=== PATIENT | male | born 1995 | race Caucasian/White ===

== ENCOUNTER 2023-12-10 11:37 | Emergency (ER) | payer OTHER, SELFPAY ==
[2023-12-10 11:44] VITALS: BP 129/74; PULSE 90; TEMP 36.8; O2SAT 97; BMI 22.4
--- NOTE | 2023-12-10 11:57 | ED_ITS ---
HPI - URI/Sore Throat General Chief Complaint: Upper Respiratory Infection Stated Complaint: URTI COMPLAINTS/SORE THROAT Time Seen by Provider: 12/10/23 11:45 Source: patient History of Present Illness HPI Narrative: 28-year-old male presents for cough and sore throat which she has had for a few days. No known ill contacts. He has been coughing up some light green phlegm. He states he is not concerned at all about COVID. No vomiting or diarrhea or known fever. No hemoptysis. He vapes and he had asthma as a child. Related Data Home Medications ?Medication ?Instructions ?Recorded ?Confirmed pregabalin 200 mg capsule (Lyrica) 200 mg PO TID 12/10/23 12/10/23 Previous Rx's ?Medication ?Instructions ?Recorded azithromycin 250 mg tablet See Rx Instructions PO .COMPLEX #6 12/10/23 (Zithromax Z-Clifford) tabs benzonatate 100 mg capsule 100 mg PO TID PRN cough #20 caps 12/10/23 Allergies Allergy/AdvReac Type Severity Reaction Status Date / Time No Known Drug Allergies Allergy Verified 12/10/23 11:43 Review of Systems ROS Narrative A ten point review of systems is negative except as noted above. PFSH PFSH Social History Little interest or pleasure in doing things: not at all Feeling down, depressed, or hopeless: not at all Exam Narrative Exam Narrative: Nurses note and vital signs reviewed and patient is not hypoxic. General: The patient appears well and in no apparent distress. Patient is resting comfortably on cart. Skin: Warm, dry, no pallor noted. There is no rash noted. Head: Normocephalic, atraumatic Eye: Normal conjunctiva, no drainage Ears, Nose, Mouth, and Throat: oral mucosa is moist. Nares patent. No pharyngeal exudate or erythema. Uvula midline. He is handling his oral secretions well. Cardiovascular: Regular Rate and Rhythm Respiratory: Patient is in no distress, no accessory muscle use, lungs are clear to auscultation, no wheezing, rales or rhonchi Back: non-tender GI: Soft and nontender Musculoskeletal: The patient has no evidence of calf tenderness, no pitting edema, symmetrical pulses noted bilaterally Neurological: A&O, normal speech Psychiatric: Cooperative Constitutional Vital Signs, click to edit/add: Last Vital Signs Temp 98.2 F 12/10/23 11:44 Pulse 90 12/10/23 11:44 Resp 18 12/10/23 11:44 BP 129/74 12/10/23 11:44 Pulse Ox 97 12/10/23 11:44 O2 Del Method Room Air 12/10/23 11:44 Course Vital Signs Vital signs: Vital Signs Temperature 98.2 F 12/10/23 11:44 Pulse Rate 90 12/10/23 11:44 Respiratory Rate 18 12/10/23 11:44 Blood Pressure 129/74 12/10/23 11:44 Pulse Oximetry 97 12/10/23 11:44 Oxygen Delivery Method Room Air 12/10/23 11:44 Temperature 98.2 F 12/10/23 11:44 Pulse Rate 90 12/10/23 11:44 Respiratory Rate 18 12/10/23 11:44 Blood Pressure 129/74 12/10/23 11:44 Pulse Oximetry 97 12/10/23 11:44 Oxygen Delivery Method Room Air 12/10/23 11:44 MDM - URI/Sore Throat MDM Narrative Medical decision making narrative: Strep test is negative. He has diabetes and is prescribed Zithromax and Tessalon. Treatment diagnosis and follow-up were discussed with the patient. Differential Diagnosis Differential diagnosis: Likely upper respiratory infection, viral infection and other (Pneumonia) Lab Data Attestation: I reviewed the patient's lab results. Labs: Lab Results 12/10/23 Range/Units 11:51 Streptococcus Screen Negative Discharge Plan Discharge Chief Complaint: Upper Respiratory Infection Clinical Impression: Upper respiratory infection Patient Disposition: Home, Self-Care Time of Disposition Decision: 12:19 Condition: Good Mode of Transportation: Private Vehicle Prescriptions / Home Meds: New azithromycin [Zithromax Z-Clifford] 250 mg tablet See Rx Instructions .ROUTE .COMPLEX Qty: 6 0RF Rx Instructions: For 250 mg dose pack: take 500 mg today (day 1), then 250 mg for 4 days (days 2-5) benzonatate 100 mg capsule 100 mg PO TID PRN (Reason: cough) Qty: 20 0RF No Action pregabalin [Lyrica] 200 mg capsule 200 mg PO TID Print Language: Italian Instructions: Upper Respiratory Infection (ED) Referrals: Physician,Non-Staff, MD [Primary Care Provider] - 1 week
[2023-12-10 12:06] LABS: Internal Control Within Normal Limits; Strep A Antigen Screen Negative
[2023-12-10 12:27] VITALS: BP 126/88; PULSE 86; O2SAT 98
== END 2023-12-10 12:28 | disposition home or self-care (01) ==
PROVIDERS: Emergency Provider Emergency Medicine
DX: J06.9 Acute upper respiratory infection, unspecified (principal)
CPT/HCPCS: 87070; 87880; 99283

== ENCOUNTER 2023-12-29 13:26 | Emergency (ER) | payer OTHER, SELFPAY ==
[2023-12-29 13:30] VITALS: BP 131/93; PULSE 80; TEMP 36.7; O2SAT 100; BMI 22.4
--- NOTE | 2023-12-29 13:35 | XR_ITS ---
The [address] [address] Patient Name: CELESTINE ESPINO MRN: [id number] date: 1995 Sex: M Assigned Patient Location: ED.MAIN Current Patient Location: ED.MAIN Accession/Order Number: [id number] Exam Date: 12/29/2023 13:40 Report Date: 12/29/2023 15:28 At the request of: MESHA MCQUEEN Procedure: XR hand RT min 3V XR hand RT min 3V 12/29/2023 1:40 PM EDT CLINICAL INDICATION: Injury COMPARISON: None. TECHNIQUE: 3 views of the right hand. FINDINGS: The bones are intact. The alignment is anatomic. The joints are maintained. The soft tissues are grossly unremarkable. XR/XR hand RT min 3V IMPRESSION: No acute osseous abnormality. Electronically authenticated by: SD SANTA Date: 12/29/2023 15:28
--- NOTE | 2023-12-29 13:45 | ED.GENADUL1 ---
HPI HPI - General Adult General Chief complaint: Extremity Injury, Upper Stated complaint: rt hand injury Time Seen by Provider: 12/29/23 13:28 Source: patient Mode of arrival: walk-in History of Present Illness HPI narrative: 28-year-old male to the emergency department with chief complaint of right hand pain. Patient reports that last night he punched a wall. He now has pain at the second MCP. No other injuries. Patient reports that he had a similar injury on his left hand and it did not heal right. Related Data Home Medications ?Medication ?Instructions ?Recorded ?Confirmed insulin aspart U-100 100 unit/mL 15 unit subcut TID 12/10/23 12/10/23 subcutaneous solution (Novolog U-100 Insulin aspart) insulin glargine 100 unit/mL (3 15 unit subcut DAILY 12/10/23 12/10/23 mL) subcutaneous pen (Basaglar KwikPen U-100 Insulin) pregabalin 200 mg capsule (Lyrica) 200 mg PO TID 12/10/23 12/10/23 Previous Rx's ?Medication ?Instructions ?Recorded azithromycin 250 mg tablet See Rx Instructions PO .COMPLEX #6 12/10/23 (Zithromax Z-Clifford) tabs benzonatate 100 mg capsule 100 mg PO TID PRN cough #20 caps 12/10/23 Allergies Allergy/AdvReac Type Severity Reaction Status Date / Time No Known Drug Allergies Allergy Verified 12/10/23 11:43 Opioid HPI Opioid Management Most Recent Opioid Data: Last Pain Scale 7 12/29/23 13:41 12/29/23 Review of Systems ROS Status of ROS 10 or more systems reviewed and unremarkable except as noted in history and below PFSH PFSH Social History Little interest or pleasure in doing things: not at all Feeling down, depressed, or hopeless: not at all Exam Narrative Exam Narrative: VITALS: I have reviewed the triage vital signs. GENERAL: Well developed, well appearing adult in no acute distress. NEURO: Alert and oriented. Moves all extremities. Face is symmetric and expressive. EYES: PERRL. No scleral icterus or conjunctival injection. No discharge. HENT: Normocephalic, atraumatic. Hearing is grossly intact. Nares grossly patent and without discharge. Mucous membranes moist. NECK: No JVD. Patient moves neck without restriction. Right hand: No tenderness or pain with range of motion about the wrist, elbow, shoulder. There is tenderness at the second MCP as well as some bruising and swelling. Radial pulse intact. Sensation is intact over the hand. Central Office Maintainer strength is intact. No abnormal digit alignment. No obvious deformity SKIN: Warm and dry. Normal turgor. No rash or lesions appreciated. PSYCH: Mood, affect, and interaction is appropriate to the setting. Constitutional Vital Signs, click to edit/add: Last Vital Signs Temp 98.1 F 12/29/23 13:30 Pulse 80 12/29/23 13:30 Resp 16 12/29/23 13:30 BP 131/93 H 12/29/23 13:30 Pulse Ox 100 12/29/23 13:30 O2 Del Method Room Air 12/29/23 13:30 Course Vital Signs Vital signs: Vital Signs Temperature 98.1 F 12/29/23 13:30 Pulse Rate 80 12/29/23 13:30 Respiratory Rate 16 12/29/23 13:30 Blood Pressure 131/93 H 12/29/23 13:30 Pulse Oximetry 100 12/29/23 13:30 Oxygen Delivery Method Room Air 12/29/23 13:30 Temperature 98.1 F 12/29/23 13:30 Pulse Rate 80 12/29/23 13:30 Respiratory Rate 16 12/29/23 13:30 Blood Pressure 131/93 H 12/29/23 13:30 Pulse Oximetry 100 12/29/23 13:30 Oxygen Delivery Method Room Air 12/29/23 13:30 Medical Decision Making MDM Narrative Medical decision making narrative: 28-year-old male the emergency department chief complaint of injury to his right hand. Vital stable, the patient is afebrile. The right hand is neurovascularly intact. X-rays ordered. X-rays without evidence of fracture. Recommended ice, rest, NSAIDs, not punching things. Return precautions were discussed. All questions were answered. The patient was discharged home. Medical Records Medical records reviewed: Yes I reviewed the patient's medical records Imaging Data X-ray hand: Radiologist's impression: ITS Impressions Hand X-Ray 12/29/23 13:35 IMPRESSION: No acute osseous abnormality. Electronically authenticated by: SD SANTA Date: 12/29/2023 15:28 Discharge Plan Discharge Chief Complaint: Extremity Injury, Upper Clinical Impression: Contusion of hand Patient Disposition: Home, Self-Care Time of Disposition Decision: 15:34 Condition: Good Mode of Transportation: Private Vehicle Prescriptions / Home Meds: No Action pregabalin [Lyrica] 200 mg capsule 200 mg PO TID azithromycin [Zithromax Z-Clifford] 250 mg tablet See Rx Instructions .ROUTE .COMPLEX Qty: 6 0RF Rx Instructions: For 250 mg dose pack: take 500 mg today (day 1), then 250 mg for 4 days (days 2-5) benzonatate 100 mg capsule 100 mg PO TID PRN (Reason: cough) Qty: 20 0RF insulin aspart U-100 [Novolog U-100 Insulin aspart] 100 unit/mL solution 15 unit subcut TID insulin glargine [Basaglar KwikPen U-100 Insulin] 100 unit/mL (3 mL) insulin pen 15 unit subcut DAILY Print Language: Syriac Instructions: Contusion in Adults (ED) Additional Instructions: Call the office of your primary care doctor to arrange for follow-up within the above-stated timeframe. Your ED visit was focused on your acute issue and does not replace primary care. You should review your labs, imaging, and diagnoses from this ED visit with your primary care physician. There may be non-emergent/ incidental findings that need further evaluation. You should review your vital signs including blood pressure with your PCP. If you were prescribed medications you should discuss possible side-effects and drug interactions with your pharmacist. Call 911 or go to the nearest Emergency Department if you develop any new or worsening symptoms. Referrals: Physician,Non-Staff, MD [Primary Care Provider] - 1 week Discharge Date/Time: 12/29/23 15:39
== END 2023-12-29 15:39 | disposition home or self-care (01) ==
PROVIDERS: Emergency Provider Student in an Organized Health Care Education/Training Program
DX: S60.221A Contusion of right hand, initial encounter (principal); W22.01XA Walked into wall, initial encounter
CPT/HCPCS: 73130; 99283

== ENCOUNTER 2024-01-25 11:43 | Emergency (ER) | payer OTHER, SELFPAY ==
[2024-01-25 11:46] VITALS: BP 145/82; PULSE 82; TEMP 36.6; O2SAT 100; BMI 21.7
[2024-01-25 11:57] LABS: Glucometer 34 mg/dL (74-106)
[2024-01-25] MEDS: DEXTROSE 50 %-WATER 25 GM/50 ML SYRINGE IV (12:07)
[2024-01-25 12:16] LABS: Basophils Percent Auto 0.5 % (0.2-2.0); Eosinophils Absolute Auto 0.1 10^3/uL (0.0-0.7); Eosinophils Percent Auto 1.5 % (0.9-7.0); Hematocrit 43.5 % (42.0-54.0); Hemoglobin 14.9 g/dL (14.0-18.0); Immature Granulocytes Abs Auto 0.01 10^3/uL (0.00-0.03); Immature Granulocytes Pct Auto 0.1 % (0.0-0.5); Lymphocytes Absolute Auto 3.2 10^3/uL (1.2-3.8); Mean Corpuscular HGB Conc 34.3 g/dL (29.9-35.2); Mean Corpuscular Hemoglobin 30.7 pg (25.9-34.0); Mean Corpuscular Volume 89.7 fL (80.0-94.0); Mean Platelet Volume 10.9 fL (9.5-13.5); Monocytes Absolute Auto 0.5 10^3/uL (0.3-0.8); Monocytes Percent Auto 7.2 % (1.7-12.0); Neutrophils Absolute Auto 3.7 10^3/uL (1.4-6.5); Neutrophils Percent Auto 48.7 % (43.0-75.0); Platelet Count 294 10^3/uL (150-450); Red Blood Count 4.85 10^6/uL (4.70-6.10); Red Cell Distribution Width 12.5 % (11.0-15.0); White Blood Count 7.6 10^3/uL (4.0-11.0)
[2024-01-25 12:28] LABS: Alanine Aminotransferase 106 U/L (16-63); Albumin Globulin Ratio 1.2; Albumin Level 4.1 g/dL (3.4-5.0); Alkaline Phosphatase 74 U/L (46-116); Anion Gap 13.7; Aspartate Amino Transferase 44 U/L (15-37); BUN Creatinine Ratio 15.5; Bilirubin Total 0.3 mg/dL (0.2-1.0); Carbon Dioxide 28.6 mmol/L (21.0-32.0); Chloride 107 mmol/L (98-107); Estimated GFR (African America >60 (>=60 mL/min/1.73m^2); Estimated GFR (Non-African Ame >60 (>=60 mL/min/1.73m^2); Globulin 3.4 g/dL; Potassium 3.3 mmol/L (3.5-5.1); Sodium 146 mmol/L (136-145); Total Protein 7.5 g/dL (6.4-8.2)
[2024-01-25 12:29] LABS: Glucometer 190 mg/dL (74-106)
[2024-01-25 12:30] LABS: Glucose 34 mg/dL (74-106)
[2024-01-25 13:32] LABS: Glucometer 180 mg/dL (74-106)
--- NOTE | 2024-01-25 15:09 | ED_ITS ---
HPI - Weakness General Chief complaint: Weakness Stated complaint: LOW BLOOD SUGAR/ GENERAL WEAKNESS Time Seen by Provider: 01/25/24 11:48 Source: patient Mode of arrival: walk-in History of Present Illness HPI Narrative: The patient is coming to the ER after he passed out on his way here apparently he has been dealing with low blood sugar for a while for the last few weeks, patient does not measure his blood sugar daily he is type I diabetic He also does not have a primary care doctor and the last time he seen any care was 1 year ago Upon arrival the patient was noted to be dizzy but he did not have any nausea vomiting or any tremors There was no changes in his insulin recently and he did take his insulin this morning without measuring it Related Data Home Medications ?Medication ?Instructions ?Recorded ?Confirmed pregabalin 200 mg capsule (Lyrica) 200 mg PO TID 12/10/23 12/10/23 Previous Rx's ?Medication ?Instructions ?Recorded blood sugar diagnostic (Accu-Chek #100 ea 01/25/24 Guide test strips) blood-glucose meter (Accu-Chek #1 ea 01/25/24 Guide Me Glucose Meter) Allergies Allergy/AdvReac Type Severity Reaction Status Date / Time No Known Drug Allergies Allergy Verified 12/10/23 11:43 Review of Systems ROS Status of ROS 10 or more systems reviewed and unremark able except as noted in history and below PFSH PFSH Social History Little interest or pleasure in doing things: not at all Feeling down, depressed, or hopeless: not at all Exam Narrative Exam Narrative: Nurses notes and vital signs reviewed and patient is not hypoxic. General: Well-appearing and in no apparent distress. Skin: Warm, dry, no pallor noted. No rash. Head: Normocephalic, atraumatic. Neck: Supple, non-tender. Eye: Pupils are equal, round and EOMI. No scleral icterus. Ears, Nose, Mouth, and Throat: TM are clear, no nasal mucosal hypertrophy. Oral mucosa is moist, no posterior oropharynx erythema, uvula is mid-line Cardiovascular: Regular Rate and Rhythm without murmur, gallop or rub. Respiratory: No accessory muscle use or respiratory distress. Lungs are clear to auscultation, no wheezing, rales or rhonchi Chest Wall: no tenderness Back: No midline thoracic or lumbar vertebral tenderness. No CVA tenderness Musculoskeletal: normal ROM, no calf or popliteal tenderness, no lower extremity edema/swelling GI: Abdomen is soft, non-distended. Normal bowel sounds. No masses appreciated. No tenderness to palpation. No rebound, guarding, or rigidity noted. Neurological: A&O x4. No cranial nerve dysfunction observed. No truncal ataxia. Moves all extremities. Sensation intact. Psychiatric: Cooperative and interactive. Normal mood and affect. Constitutional Vital Signs, click to edit/add: Last Vital Signs Temp 97.8 F 01/25/24 11:46 Pulse 82 01/25/24 11:46 Resp 16 01/25/24 11:46 BP 145/82 H 01/25/24 11:46 Pulse Ox 100 01/25/24 11:46 O2 Del Method Room Air 01/25/24 11:46 Course Vital Signs Vital signs: Vital Signs Temperature 97.8 F 01/25/24 11:46 Pulse Rate 82 01/25/24 11:46 Respiratory Rate 16 01/25/24 11:46 Blood Pressure 145/82 H 01/25/24 11:46 Pulse Oximetry 100 01/25/24 11:46 Oxygen Delivery Method Room Air 01/25/24 11:46 Temperature 97.8 F 01/25/24 11:46 Pulse Rate 82 01/25/24 11:46 Respiratory Rate 16 01/25/24 11:46 Blood Pressure 145/82 H 01/25/24 11:46 Pulse Oximetry 100 01/25/24 11:46 Oxygen Delivery Method Room Air 01/25/24 11:46 MDM - Weakness MDM Narrative Medical decision making narrative: The patient blood sugar upon arrival was 34 it was noted that he takes 16 units of Lantus daily and he 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 sugar containing fluids He was kept in the ER at least for an hour during which his blood sugar did not drop again and I did offer him after that to be admitted for 24 hours observation because his insulin works for 24 hours but the patient mentioned that he is feeling better and his blood sugar did not drop again he just want to go home I explained to him that right now with his girlfriend at the bedside she have to make sure that she will keep an eye on his blood sugar his blood sugar need to be measured at least 4 times a day and especially before going to sleep and when waking up and with every meal before taking his insulin the patient also was provided with a glucometer and testing strips And he is to follow-up with his primary care doctor that he was referred to a new primary care in the area The patient also take lower his Lantus to 10 units daily and that to be started tomorrow not today and to also lowered his lispro to 12 units and that to be given these changes tomorrow but today he is not going to control his blood sugar with insulin and he will measure the blood sugar at least 4 times today as well The patient is to follow up with primary care physician in next 2-3 days or to return to the emergency department should any of the signs or symptoms worsen or new symptoms develop. The patient agrees with the following Diagnosis and Treatment plan and the patient will be discharged home., Lab Data Labs: Lab Results 01/25/24 01/25/24 01/25/24 Range/Units 11:48 11:53 12:27 WBC 7.6 (4.0-11.0) 10^3/uL RBC 4.85 (4.70-6.10) 10^6/uL Hgb 14.9 (14.0-18.0) g/dL Hct 43.5 (42.0-54.0) % MCV 89.7 (80.0-94.0) fL MCH 30.7 (25.9-34.0) pg MCHC 34.3 (29.9-35.2) g/dL RDW 12.5 (11.0-15.0) % Plt Count 294 (150-450) 10^3/uL MPV 10.9 (9.5-13.5) fL Neut % (Auto) 48.7 (43.0-75.0) % Lymph % (Auto) 42.0 (20.5-60.0) % Canyon % (Auto) 7.2 (1.7-12.0) % Eos % (Auto) 1.5 (0.9-7.0) % Baso % (Auto) 0.5 (0.2-2.0) % Neut # (Auto) 3.7 (1.4-6.5) 10^3/uL Lymph # (Auto) 3.2 (1.2-3.8) 10^3/uL Canyon # (Auto) 0.5 (0.3-0.8) 10^3/uL Eos # (Auto) 0.1 (0.0-0.7) 10^3/uL Baso # (Auto) 0.0 (0.0-0.1) 10^3/uL Abs Immat Gran (auto) 0.01 (0.00-0.03) 10^3/uL Imm/Tot Granulo (auto) 0.1 (0.0-0.5) % Sodium 146 H (136-145) mmol/L Potassium 3.3 L (3.5-5.1) mmol/L Chloride 107 (98-107) mmol/L Carbon Dioxide 28.6 (21.0-32.0) mmol/L Anion Gap 13.7 BUN 16.0 (7.0-18.0) mg/dL Creatinine 1.03 (0.70-1.30) mg/dL Est GFR ( Amer) >60 (>=60 mL/min/1.73m^2) Est GFR (Non-Af Amer) >60 (>=60 mL/min/1.73m^2) BUN/Creatinine Ratio 15.5 Glucose 34 L* (74-106) mg/dL Calcium 9.0 (8.5-10.1) mg/dL Total Bilirubin 0.3 (0.2-1.0) mg/dL AST 44 H (15-37) U/L ALT 106 H (16-63) U/L Alkaline Phosphatase 74 (46-116) U/L Total Protein 7.5 (6.4-8.2) g/dL Albumin 4.1 (3.4-5.0) g/dL Globulin 3.4 g/dL Albumin/Globulin Ratio 1.2 POC Glucose 34 L* 190 H (74-106) mg/dL 01/25/24 Range/Units 13:31 WBC (4.0-11.0) 10^3/uL RBC (4.70-6.10) 10^6/uL Hgb (14.0-18.0) g/dL Hct (42.0-54.0) % MCV (80.0-94.0) fL MCH (25.9-34.0) pg MCHC (29.9-35.2) g/dL RDW (11.0-15.0) % Plt Count (150-450) 10^3/uL MPV (9.5-13.5) fL Neut % (Auto) (43.0-75.0) % Lymph % (Auto) (20.5-60.0) % Canyon % (Auto) (1.7-12.0) % Eos % (Auto) (0.9-7.0) % Baso % (Auto) (0.2-2.0) % Neut # (Auto) (1.4-6.5) 10^3/uL Lymph # (Auto) (1.2-3.8) 10^3/uL Canyon # (Auto) (0.3-0.8) 10^3/uL Eos # (Auto) (0.0-0.7) 10^3/uL Baso # (Auto) (0.0-0.1) 10^3/uL Abs Immat Gran (auto) (0.00-0.03) 10^3/uL Imm/Tot Granulo (auto) (0.0-0.5) % Sodium (136-145) mmol/L Potassium (3.5-5.1) mmol/L Chloride (98-107) mmol/L Carbon Dioxide (21.0-32.0) mmol/L Anion Gap BUN (7.0-18.0) mg/dL Creatinine (0.70-1.30) mg/dL Est GFR ( Amer) (>=60 mL/min/1.73m^2) Est GFR (Non-Af Amer) (>=60 mL/min/1.73m^2) BUN/Creatinine Ratio Glucose (74-106) mg/dL Calcium (8.5-10.1) mg/dL Total Bilirubin (0.2-1.0) mg/dL AST (15-37) U/L ALT (16-63) U/L Alkaline Phosphatase (46-116) U/L Total Protein (6.4-8.2) g/dL Albumin (3.4-5.0) g/dL Globulin g/dL Albumin/Globulin Ratio POC Glucose 180 H (74-106) mg/dL Discharge Plan Discharge Chief Complaint: Weakness Clinical Impression: Hypoglycemia Patient Disposition: Home, Self-Care Time of Disposition Decision: 13:47 Condition: Good Prescriptions / Home Meds: New (DME) blood-glucose meter [Accu-Chek Guide Me Glucose Mtr] Misc See Rx Instructions .Route Qty: 1 0RF Rx Instructions: As directed (DME) Accu-Chek Guide test strips Strip See Rx Instructions .Route Qty: 100 0RF Rx Instructions: As directed QID Discontinued insulin aspart U-100 [Novolog U-100 Insulin aspart] 100 unit/mL solution 15 unit subcut TID insulin glargine [Basaglar KwikPen U-100 Insulin] 100 unit/mL (3 mL) insulin pen 15 unit subcut DAILY No Action pregabalin [Lyrica] 200 mg capsule 200 mg PO TID Print Language: Angolan Instructions: Hypoglycemia in Adolescents with Diabetes (ED) Additional Instructions: Please a change in her long-acting insulin to 10 units only Also the short acting insulin will be 12 units instead of 16 Make sure the blood sugar reading is 4 times a day especially before going to sleep Referrals: Physician,Non-Staff, MD [Primary Care Provider] - 1 week Discharge Date/Time: 01/25/24 14:00
== END 2024-01-25 14:00 | disposition home or self-care (01) ==
PROVIDERS: Emergency Provider Emergency Medicine
DX: E10.649 Type 1 diabetes mellitus with hypoglycemia without coma (principal); Z79.4 Long term (current) use of insulin
CPT/HCPCS: 36415; 80053; 82948; 85025; 96374; 99284

== ENCOUNTER 2024-03-07 19:49 | Emergency (ER) | payer SELFPAY ==
[2024-03-07 20:00] VITALS: BP 134/77; PULSE 109; TEMP 36.8; O2SAT 99; BMI 24.4
--- NOTE | 2024-03-07 20:16 | ED.GENADUL1 ---
HPI HPI - General Adult General Stated complaint: Reflill MEDICATION Time Seen by Provider: 03/07/24 20:07 History of Present Illness HPI narrative: 29-year-old male presents to the emergency department asking for refill of his Neurontin. He has peripheral neuropathy states from diabetes. He moved here from [place] and has not found a new doctor yet and is running low on his Neurontin. Opioid HPI Opioid Management Most Recent Opioid Data: No Data to Display Review of Systems ROS Narrative A ten point review of systems is negative except as noted above. Exam Narrative Exam Narrative: Nurses note and vital signs reviewed and patient is not hypoxic. General: The patient appears well and in no apparent distress. Patient is sitting in a chair. Skin: Warm, dry, no pallor noted. There is no rash noted. Head: Normocephalic, atraumatic Eye: Normal conjunctiva, no drainage Ears, Nose, Mouth, and Throat: oral mucosa is moist. Nares patent. Cardiovascular: Regular Rate and Rhythm Respiratory: Patient is in no distress, no accessory muscle use, lungs are clear to auscultation, no wheezing, rales or rhonchi Back: non-tender GI: Nontender Musculoskeletal: No joint swelling Neurological: A&O, normal speech Psychiatric: Cooperative Medical Decision Making MDM Narrative Medical decision making narrative: I have declined to give him a refill for this controlled substance for which she has no substantiation. He was given a list of family physicians with whom he can follow-up.. Treatment diagnosis and follow-up were discussed with the patient. Differential Diagnosis Differential Diagnosis: Peripheral neuropathy, medication refill Discharge Plan Discharge Clinical Impression: Neuropathy Patient Disposition: Home, Self-Care Time of Disposition Decision: 20:15 Condition: Good Mode of Transportation: Private Vehicle Print Language: Surinamese Instructions: Peripheral Neuropathy (ED) Additional Instructions: See attached list of physicians
[2024-03-07 20:33] VITALS: BP 134/77; PULSE 75; TEMP 36.8; O2SAT 100; BMI 22.4
== END 2024-03-07 20:42 | disposition home or self-care (01) ==
PROVIDERS: Emergency Provider Emergency Medicine
DX: E11.42 Type 2 diabetes mellitus with diabetic polyneuropathy (principal)
CPT/HCPCS: 99281